=== PATIENT | male | born 1985 | race Caucasian/White ===

== ENCOUNTER 2017-12-26 17:02 | Emergency (ER) | payer OTHER ==
[2017-12-26] MEDS ORDERED: BUPIVACAINE 0.5% PF 30 ML VIAL SUBQ STA (17:22)
[2017-12-26] MEDS ORDERED: BUPIVACAINE 0.5% PF 10 ML VIAL IM ONE (17:31)
[2017-12-26] MEDS ORDERED: ceFAZolin 1 GM VIAL IM STA (18:49)
--- NOTE | 2017-12-26 18:52 | ED Physician Documentation ---
PD HPI UPPER EXT INJURY - Stated complaint Stated Complaint: RT MID FIN LAC - Chief complaint Chief Complaint: Laceration - History obtained from History obtained from: Patient, Family - History of Present Illness Location: Right, Finger (3rd) Where injury occurred: Home Timing - onset: How many hours ago (1) Timing - duration: Hours (1) Timing - details: Abrupt onset Pain level max: 6 Pain level now: 4 Improved by: Rest Worsened by: Moving, Palpating Associated symptoms: No: Weakness, Numbness, Tingling, Swelling Contributing factors: No: Anticoagulated, Prior ortho surgery Similar symptoms before: Has not had sx before Recently seen: Not recently seen - Additonal information Additional information: cut on a lawnmower blade today. Review of Systems Skin: denies: Rash Neurologic: denies: Focal weakness, Numbness PD PAST MEDICAL HISTORY - Past Medical History Past Medical History: No - Past Surgical History Past Surgical History: No - Present Medications Home Medications: Ambulatory Orders Medication Instructions Recorded Confirmed Cephalexin [Keflex] 500 mg PO Q6H #28 capsule 12/26/17 - Allergies Allergies/Adverse Reactions: Allergies Allergy/AdvReac Type Severity Reaction Status Date / Time No Known Drug Allergies Allergy Verified 12/26/17 17:11 - Social History Does the pt smoke?: No Smoking Status: Never smoker Does the pt drink ETOH?: Yes Does the pt have substance abuse?: No - Immunizations Immunizations are current?: Yes Immunizations: TDAP current <10years - POLST Patient has POLST: No PD ED PE NORMAL - Vitals Vital signs reviewed: Yes - General General: Alert and oriented X 3, No acute distress - Derm Derm: Warm and dry - Extremities Extremities: Other (R 3rd digit - 2 cm curved laceration, lateral aspect distal phalanx. no tendon injury. NVI.) - Neuro Neuro: Alert and oriented X 3 - Psych Psych: Normal mood, Normal affect Results - Vitals Vitals: Vital Signs - 24 hr 12/26/17 12/26/17 17:08 19:30 Temperature 36 C L 36.5 C Heart Rate 58 L 64 Respiratory 16 18 Rate Blood Pressure 118/75 127/75 O2 Saturation 99 97 Oxygen O2 Source Room air - Rads (name of study) R 3rd digit Radiology: Prelim report reviewed, EMP read contemporaneously, See rad report ( Small corner fracture, base of distal phalanx, radial side) Procedures - Laceration (location) R 3rd digit Length in cm: 2 Wound type: Linear, Into subcut fat Neurovascular status: Sensory intact, Motor intact, Vascular intact Tendon involvement: Tendon intact. No: Tendon Injury Anesthesia: Lidocaine 2% Wound Preparation: Irrigated copiously NS, Wound explored, To the base. No: FB identified, FB removed Skin layer closure: Nylon, Size #-0 - enter number (4), Sutures - enter # (3) Other: Patient tolerated well, No complications, Neurovascular intact, Dressing applied, Tetanus UTD Complexity: Simple PD MEDICAL DECISION MAKING - ED course Complexity details: reviewed results, re-evaluated patient, considered differential, d/w patient, d/w family ED course: Patient is a 32-year-old gentleman who presents to the emergency department with a right third digit laceration. This was repaired. Tolerated well. Does appear to have a small corner fracture on x-ray at the distal phalanx near the laceration, however the laceration does not appear this deep on examination. He does have a history of having that same finger slammed in a door several years ago. Given IM Ancef and will place on oral antibiotics as well. We will have him follow-up closely with his doctor. Warnings of infection and instructions on wound care given at bedside. Also counseled on how to minimize scarring. Patient counseled regarding signs and symptoms for which I believe and urgent re-evaluation would be necessary. Patient with good understanding of and agreement to plan and is comfortable going home at this time This document was made in part using voice recognition software. While efforts are made to proofread this document, sound alike and grammatical errors may occur. Departure - Departure Disposition: 01 Home, Self Care Clinical Impression: Laceration Condition: Good Instructions: ED Laceration Hand Follow-Up: your,doctor in 7-10 days for stitch removal [Other] Prescriptions: Cephalexin [Keflex] 500 mg PO Q6H #28 capsule Comments: Keep the wound clean and dry. The stitches should be removed in 7-10 days with your doctor. Return if you notice redness swelling or drainage from the wound. It is possible there is a small fracture on the finger, however this may be from a prior injury as well. Discharge Date/Time: 12/26/17 19:30
--- NOTE | 2017-12-26 19:23 | XRAY Report ---
EXAM: RIGHT THIRD DIGIT RADIOGRAPHY EXAM DATE: 12/26/2017 06:05 PM. CLINICAL HISTORY: Finger hit with business affairs manager blade. COMPARISON: None. TECHNIQUE: 3 views. FINDINGS: Bones: Small corner fracture, base of distal phalanx, radial side. Otherwise no bony abnormality. Joints: Normal. No subluxations. Soft Tissues: Distal soft tissue swelling. IMPRESSION: Small corner fracture, base of distal phalanx, radial side. [facility] Referring Provider Line: [phone] SITE ID: [id number]
[2017-12-26 19:32] VITALS: BP 127/75
== END 2017-12-26 19:30 | disposition home or self-care (01) ==
LOC: ED 17:02
DX: S61.212A Laceration without foreign body of right middle finger without damage to nail, initial encounter (principal); W27.1XXA Contact with garden tool, initial encounter; Y92.009 Unspecified place in unspecified non-institutional (private) residence as the place of occurrence of the external cause
CPT/HCPCS: 12001; 73140; 96372; 99283